=== PATIENT | male | born 1940 | race Caucasian/White ===

== ENCOUNTER 2017-01-22 10:33 | Day surgery (SDC) | payer MEDICARE, OTHER ==
[~2017-01-22] VITALS: Ht 165.1 cm; Wt 93.7 kg
[~2017-01-22 10:33] MED LIST: CALCIUM PO; CELE200C PO; CHOL400T10 PO; OMEP-110 PO; OXYB5TAB7 PO; PANT40TA5 PO; ROSU10TA PO; VERA180C8 PO; VITAMIN B12 PO; WARF7.5T6 PO
[2017-01-22] MEDS ORDERED: ENOX150S5 SQ (11:04)
[2017-01-22] MEDS ORDERED: LACTATED RINGERS 1,000 ML IV SCH (11:07)
[2017-01-22] MEDS ORDERED: LIDOCAINE 1%, 2ML SQ PRN (11:30)
[2017-01-22] MEDS ORDERED: SUCCINYLCHOLINE 20 MG/ML, 10ML ONE (12:31)
[2017-01-22] MEDS ORDERED: PROPOFOL 10 MG/ML, 20ML ONE (12:31)
[2017-01-22] MEDS ORDERED: ONDANSETRON 2MG/ML, 2ML IVPush PRN (13:30)
[2017-01-22] MEDS ORDERED: OXYcodone 5 MG/5 ML ORAL.SOL UDC PO PRN (13:30)
[2017-01-22] MEDS ORDERED: LABETALOL 5MG/ML, 20ML IV PRN (13:30)
[2017-01-22] MEDS ORDERED: HYDROmorphone 1 MG/ML, 1ML IV PRN (13:30)
[2017-01-22] MEDS ORDERED: FENTANYL PF 100 MCG/2ML IV PRN (13:30)
[2017-01-22] MEDS ORDERED: hydrALAzine 20 MG/ML, 1ML IV PRN (13:30)
[2017-01-22] MEDS ORDERED: METOCLOPRAMIDE 5 MG/ML, 2ML IV PRN (13:30)
[2017-01-22] MEDS ORDERED: ACETAMINOPHEN 325 MG TABLET PO PRN (13:30)
== END 2017-01-22 14:40 ==
LOC: OUT 10:33
PROVIDERS: ATTEND Internal Medicine Gastroenterology
DX: K22.710 Barrett's esophagus with low grade dysplasia (principal); Z87.820 Personal history of traumatic brain injury
CPT/HCPCS: 36415; 43270; 85610; 85730; J0330; J2250; J2704; J3490; J7120